=== PATIENT | female | born 1965 | race Caucasian/White ===

== ENCOUNTER 2022-03-29 08:45 | Emergency (ER) | payer OTHER ==
[~2022-03-29] VITALS: Ht 165.1 cm; Wt 67.0 kg
[2022-03-29] MEDS ORDERED: HYDROCODONE/ACETAMINOPHEN 5/325MG TABLET PO ONE (09:15)
[2022-03-29] MEDS ORDERED: LORAZEPAM 0.5MG TABLET PO ONE (09:15)
[2022-03-29] MEDS ORDERED: KETOROLAC 60MG/2ML VIAL IM ONE (11:00)
[2022-03-29] MEDS ORDERED: IBUP-2029 MT (13:15)
[2022-03-29] MEDS ORDERED: METH-653 MT (13:15)
[2022-03-29 13:23] VITALS: BP 124/76
== END 2022-03-29 13:25 | disposition home or self-care (01) ==
LOC: ER 08:45
DX: M54.50 Low back pain, unspecified (principal)
CPT/HCPCS: 72131; 96372; 99284; J1885